=== PATIENT | female | born 1970 | race Caucasian/White ===

== ENCOUNTER 2019-06-19 11:37 | Emergency (ER) | payer OTHER, SELFPAY ==
[2019-06-19 11:44] VITALS: BP 163/83; PULSE 103; RESP 20; TEMP 37.1; O2SAT 99
[2019-06-19 11:46] VITALS: O2SAT 100
[2019-06-19 11:50] VITALS: O2SAT 99
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
[2019-06-19 13:30] VITALS: BP 136/72; PULSE 88; RESP 16; O2SAT 99
== END 2019-06-19 13:32 | disposition home or self-care (01) ==
PROVIDERS: Emergency Provider Emergency Medicine; PCP Family Medicine
DX: S60.222A Contusion of left hand, initial encounter (principal); S50.11XA Contusion of right forearm, initial encounter; S70.12XA Contusion of left thigh, initial encounter; S90.02XA Contusion of left ankle, initial encounter; V43.52XA Car driver injured in collision with other type car in traffic accident, initial encounter
CPT/HCPCS: 73552; 99284; 73090; 73130; 73610

== ENCOUNTER 2020-09-09 14:48 | Outpatient (REF) | payer SELFPAY ==
[2020-09-13 11:50] LABS: SARS-CoV-2 RNA Source Nasal/Nares
[2020-09-13 11:51] LABS: SARS-CoV-2 RNA Not Detected (NotDetected)
== END 2020-09-09 15:08 ==
LOC: NCHCN 14:48
PROVIDERS: PCP Family Medicine; Visit Provider Family Medicine
DX: Z20.828 Contact with and (suspected) exposure to other viral communicable diseases (principal)
CPT/HCPCS: U0003

== ENCOUNTER 2020-09-20 23:27 | Outpatient (REF) | payer SELFPAY ==
[2020-09-21 23:10] LABS: COVID-19 RT-PCR UVMMC Result Positive (Negative)
== END 2020-09-20 23:47 ==
LOC: NCHCN 23:27
PROVIDERS: PCP Family Medicine; Visit Provider Family Medicine
DX: J06.9 Acute upper respiratory infection, unspecified (principal); Z20.828 Contact with and (suspected) exposure to other viral communicable diseases
CPT/HCPCS: U0003